=== PATIENT | male | born 1990 | race Caucasian/White ===

== ENCOUNTER 2023-07-10 14:31 | Emergency (ER) | payer OTHER, SELFPAY ==
[2023-07-10 14:34] VITALS: BP 148/86
--- NOTE | 2023-07-10 16:02 | ED.GENMED ---
History of Present Illness
<PEDRO Faria - Last Filed: 07/10/23 18:50>
General
Chief Complaint: Dizziness
Source: patient and spouse
Exam Limitations: none
Time Seen by Provider: 07/10/23 15:03
Nursing documentation reviewed up to this point in time: agreed with
Travel History
Have you had any contact with someone who has COVID-19?: No
Do you have any symptoms of coronavirus? Fever > 100 degrees, chills, cough, shortness of breath, sore throat, loss of taste or smell, muscle aches, or headache?: No
History of Present Illness
History of Present Illness:
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 he noticed his head felt heavy and he had a little tendinitis. Wednesday he felt that his balance was off. He has had
intermittent nausea and balance issues since then. He does describe feeling dizzy but denies a sensation of the room spinning. He denies any actual headache. He denies any visual changes. Denies any upper extremity numbness Tingling/ weakness.
Patient denies any neck pain. Patient denies any recent heavy weightlifting. Denies any chiropractor manipulation.
reports pt was trying to carry his son prior to arrival in a car seat and almost fell over.
Past History
<PEDRO Faria - Last Filed: 07/10/23 18:50>
Past History
ED Past Medical History: None
Social History
Tobacco: Non-smoker
Alcohol: None
Drug: None
Personal: Single
Review of Systems
<PEDRO Faria - Last Filed: 07/10/23 18:50>
Review of Systems
Allergies reviewed?: Yes
All Other Systems: ROS reviewed and negative except as documented in HPI and ROS
Constitutional: Reports no symptoms; Denies fever, fatigue or chills
EENT: Reports no symptoms
Respiratory: Reports no symptoms
Cardiac: Reports no symptoms
ABD/GI: Reports nausea; Denies vomiting
Musculoskeletal: Reports no symptoms
Skin: Reports no symptoms
Neurological: Reports dizzy and other (head felt heavy )
Hematologic/Lymphatic: Reports no symptoms
Psychiatric: Reports no symptoms
Phy Exam
<PEDRO Faria - Last Filed: 07/10/23 18:50>
General Physical Exam
General Presentation: no apparent distress
General age: appears stated age
General Skin: warm and dry
General Habitus: normal
General Mental: alert
General Hydration: appears well hydrated
ENT Exam
ENT Exam: EOMI, TM's normal and neck supple
Eye Exam
Eye Exam: PERRL, EOMI and other (mild nystagmus to the left horizontal)
Eye Exam General: PERRL: bilateral and EOM intact: bilateral
Pupil Exam: Bilateral: round and reactive
Neurological Exam
Neurological Exam: alert, oriented x3, no motor deficits and no sensory deficits
Loman Coma Scale
Eye Opening: Spontaneous
Verbal Response: Oriented
Motor Response: Obeys Commands
GCS Total Score: 15
Cerebellar
Cerebellar Function: normal finger to nose and normal heel to garrett
Musculoskeletal Exam
Musculoskeletal Exam: full ROM
Skin Exam
Skin Exam: normal color and warm/dry
Psychiatric Exam
Psychiatric Exam: normal mood/affect
Course
<PEDRO Faria - Last Filed: 07/10/23 18:50>
Orders/Labs/Results
Orders:
Orders
07/10/23 16:01
CT Head W/o Iv Contrast Urgent
Comment:
Reason For Exam: balance issues /dizzy
07/10/23 16:14
Complete Blood Count/With Diff Urgent
Comprehensive Metabolic Panel Urgent
07/10/23 16:45
CT Sinuses W/o Iv Contrast Urgent
Comment:
Reason For Exam: vertigo /sinus disease
Meclizine [Antivert] 25 mg PO NOW STA
Abnormal Lab Results
07/10/23
16:14
MCH 31.1 H pg
(27.0-31.0)
MCHC 37.5 H g/dL
(33.0-37.0)
Chloride 97 L mmol/L
(98-107)
Glucose 112 H mg/dl
(70-99)
Albumin 5.5 H g/dl
(3.5-5.0)
07/10/23 16:14
07/10/23 16:14
Vital Signs
Initial and Last Documented VS:
Initial Vital Signs
Temp Pulse Resp BP Pulse Ox
98.4 F 98 16 148/86 98
07/10/23 14:34 07/10/23 14:34 07/10/23 14:34 07/10/23 14:34 07/10/23 14:34
Last Documented Vital Signs
Temp Pulse Resp BP Pulse Ox
98.4 F 98 16 143/85 98
07/10/23 14:34 07/10/23 14:34 07/10/23 14:34 07/10/23 16:18 07/10/23 14:34
Barber Tool Sharpener consulted with Physician
Barber Tool Sharpener consulted with physician?: Yes
Name of Physician Consulted: brenda/jamaal
<Vasquez Albright, DO - Last Filed: 07/10/23 16:46>
Orders/Labs/Results
Orders:
Orders
07/10/23 16:01
CT Head W/o Iv Contrast Urgent
Comment:
Reason For Exam: balance issues /dizzy
07/10/23 16:14
Complete Blood Count/With Diff Urgent
Comprehensive Metabolic Panel Urgent
07/10/23 16:45
CT Sinuses W/o Iv Contrast Urgent
Comment:
Reason For Exam: vertigo /sinus disease
Meclizine [Antivert] 25 mg PO NOW STA
Abnormal Lab Results
07/10/23
16:14
MCH 31.1 H pg
(27.0-31.0)
MCHC 37.5 H g/dL
(33.0-37.0)
Chloride 97 L mmol/L
(98-107)
Glucose 112 H mg/dl
(70-99)
Albumin 5.5 H g/dl
(3.5-5.0)
07/10/23 16:14
07/10/23 16:14
Vital Signs
Initial and Last Documented VS:
Initial Vital Signs
Temp Pulse Resp BP Pulse Ox
98.4 F 98 16 148/86 98
07/10/23 14:34 07/10/23 14:34 07/10/23 14:34 07/10/23 14:34 07/10/23 14:34
Last Documented Vital Signs
Temp Pulse Resp BP Pulse Ox
98.4 F 98 16 143/85 98
07/10/23 14:34 07/10/23 14:34 07/10/23 14:34 07/10/23 16:18 07/10/23 14:34
<PEDRO Faria - Last Filed: 07/10/23 18:50>
MDM/Problems Addressed
Differential Diagnosis Includes:
Not limited to vertigo, dizziness less likely dissection
MDM/Problems Addressed:
Symptoms are consistent with benign positional vertigo. Patient nontoxic CT head negative for acute findings. Patient does have history of sinus disease there is some sinus disease document on CAT scan in fact patient has an appoint with his ENT
on Wednesday. Patient denies any actual headache trauma neck pain and visual disturbance or neurological deficit on exam no concerning findings for dissection. He was eval by ED attending. He was given meclizine still with minimal symptoms however
feels well enough to go home with outpatient follow-up with ENT and PCP. Discussed to return if any worsening of symptoms
Chronic conditions affecting care:
hx of atypical seizure on keppra
<PEDRO Faria - Last Filed: 07/10/23 18:50>
*Radiology
Radiology exam reviewed: radiology read reviewed
*Pulse Oximetry
Patient hypoxic: no
*Critical Care Note
Total Time (30-74mins, 75-104mins- exclusive of procedures): Not Applicable
ED Attending Note
<PEDRO Faria - Last Filed: 07/10/23 18:50>
-
Portions of this chart may have been created with voice recognition software.� Occasional wrong word or��sound alike� substitutions may have occurred due to the inherent limitations of voice recognition software.
<Vasquez Albrihgt DO - Last Filed: 07/10/23 16:46>
ED Attending Note
Patient seen and examined by attending physician: Yes
I performed the substantive portion of visit, reviewed & personally made and approve the management plan that is documented in note by myself or LORENZO.: Yes
ED Attending Note:
With POWER REACTOR SUPERVISOR examined independently agree with assessment and plan looks like acute lab otitis or BPPV chronic sinusitis patient dizziness unsteady gait when he walks, scheduled to see his ENT on Wednesday will start with some steroids and meclizine, check
electrolytes CTs rule out mass or severe sinus disease on exam he is nontoxic, is normal finger-nose muscle strength 5 out of 5
Discharge Plan
Departure
Patient Disposition: Home (Routine Discharge)
Date of Disposition: 07/10/23
Time of Disposition: 18:45
Patient with high blood pressure during this ER visit?: Yes
Condition: Fair
Covid-19: Not Applicable
Discharge Problem:
Vertigo
Instructions: Vertigo (a Type of Dizziness) (DC), BLOOD PRESSURE
Prescriptions:
New
meclizine 25 mg tablet
25 mg PO TID PRN (Reason: motion sickness) Qty: 10 0RF
No Action
ibuprofen 800 MG tablet
800 mg PO Q8 Qty: 21 0RF
Rx Instructions:
for 7 days
hydrocodone-acetaminophen 5 MG/500 MG tablet
1 tab PO Q4HPRN PRN (Reason: Right hand pain) Qty: 12 0RF
Referrals:
Terry Varela DO [Family Provider] -
Activity Restrictions/Additional Instructions:
Meclizine 1 tablet every 8 hours as needed. This medication was sent to your pharmacy. Stay well-hydrated. Follow-up with your ENT as scheduled on Wednesday however return if any worsening of symptoms including worsening dizziness.
In addition follow-up with your family doctor in the next several days.
Interventions
Interventions:
*Risk Screen - Suicide Last Done: 07/10/23 14:34
*General Assessment Last Done: 07/10/23 14:34
*Neglect/Abuse Screening Last Done: 07/10/23 14:34
ED- Neurological Assessment Last Done: 07/10/23 16:17
ED- Cardiac Assessment Last Done: 07/10/23 16:17
ED Swallowing Screen Last Done: 07/10/23 17:00
[2023-07-10 16:16] VITALS: BMI 28.0
[2023-07-10 16:18] VITALS: BP 143/85
[2023-07-10 16:26] LABS: % Eosinophils 2.2 % (0-6); % Monocytes 5.9 % (1.7-9.3); Absolute Eosinophils 0.2 10^3/uL (0-0.7); Absolute Monocytes 0.6 10^3/uL (0.1-0.6); Nucleated Red Blood Cells % 0 % (-)
[2023-07-10 16:41] LABS: ALT (SGPT) 22 U/L (0-50); AST (SGOT) 30 U/L (17-59); Albumin 5.5 g/dl (3.5-5.0); Alkaline Phosphatase 84 U/L (38-126); Blood Urea Nitrogen 18 mg/dl (9-20); Calcium 9.8 mg/dl (8.4-10.2); Carbon Dioxide 27 mmol/L (22-30); Chloride 97 mmol/L (98-107); Estimated Creatinine Clearance 119 ml/min; Glucose 112 mg/dl (70-99); Sodium 139 mmol/L (135-145); Total Protein 8.2 g/dl (6.3-8.2); eGFR > 60.00
[2023-07-10 16:47] LABS: % Basophils 0.5 % (0-2); % Immature Granulocytes 0.4 % (0-0.5); % Lymphocytes 27.4 % (20.5-51.1); % Neutrophils 63.6 % (42.2-75.2); Absolute Basophils 0.1 10^3/uL (0-0.2); Absolute Lymphocytes 2.8 10^3/uL (1.2-3.4); Absolute Neutrophils 6.5 10^3/uL (1.4-6.5); Hematocrit 45.6 % (39.0-52.0); Hemoglobin 17.1 g/dL (13.0-18.0); Mean Corp Hgb Conc. 37.5 g/dL (33.0-37.0); Mean Corpuscular Hgb 31.1 pg (27.0-31.0); Mean Corpuscular Volume 82.9 fL (80.0-94.0); Mean Platelet Volume 10.3 fL (7.4-10.4); Platelet Count 264 10^3/uL (130-400); Red Cell Dist. Width 12.3 % (11.5-14.5); White Blood Cell Count 10.2 10^3/uL (4.8-10.8)
[2023-07-10] MEDS: ANTIVERT 25 MG PO (17:13)
== END 2023-07-10 19:04 | disposition home or self-care (01) ==
LOC: EMR 14:31
PROVIDERS: Nurse Practitioner; EMERGENCY PHYSICIAN Emergency Medicine; FAMILY PHYSICIAN Family Medicine
DX: R42 Dizziness and giddiness (principal); G40.909 Epilepsy, unspecified, not intractable, without status epilepticus
CPT/HCPCS: 99284; 70450; 70486; 80053; 85025